=== PATIENT | male | born 1970 | race Hispanic/Latino ===

== ENCOUNTER 2020-04-04 23:20 | Emergency (ER) | payer BC ==
[2020-04-04] MEDS ORDERED: HYDROcodone/Acetaminophen 10/325 mg Tablet ONE (23:34)
[2020-04-04] MEDS ORDERED: AMOXicillin 250 MG CAP ONE (23:34)
== END 2020-04-04 23:33 | disposition home or self-care (01) ==
LOC: BURERS 23:20
DX: K02.9 Dental caries, unspecified (principal); E78.5 Hyperlipidemia, unspecified; Z79.899 Other long term (current) drug therapy; Z79.82 Long term (current) use of aspirin
CPT/HCPCS: 99282

== ENCOUNTER 2020-11-26 18:13 | Emergency (ER) | payer SELFPAY ==
[2020-11-27 18:24] LABS: SARS-CoV-2 MS2 Positive; SARS-CoV-2 N Gene Positive; SARS-CoV-2 S Gene Positive; SARS-CoV-2 by NAA DETECTED (NotDetected); SARS-CoV-2 orf1ab Positive
== END 2020-11-26 18:47 | disposition home or self-care (01) ==
LOC: BURERS 18:13
DX: U07.1 COVID-19 (principal); J06.9 Acute upper respiratory infection, unspecified; E11.9 Type 2 diabetes mellitus without complications; E78.00 Pure hypercholesterolemia, unspecified; Z79.82 Long term (current) use of aspirin
CPT/HCPCS: 87635; 87804; 99283; U0003

== ENCOUNTER 2025-09-17 07:13 | Emergency (ER) | payer BC ==
[2025-09-17] MEDS ORDERED: HYDROcodone/Acetaminophen 5/325 mg Tablet ONE (08:08)
[2025-09-17] MEDS ORDERED: predniSONE 20 MG TAB ONE (08:08)
[2025-09-17] MEDS ORDERED: Ketorolac Tromethamine 30 MG (1 mL) VIAL ONE (09:40)
== END 2025-09-17 11:38 | disposition home or self-care (01) ==
LOC: BURERS 07:13
DX: M54.41 Lumbago with sciatica, right side (principal); E11.9 Type 2 diabetes mellitus without complications; E78.00 Pure hypercholesterolemia, unspecified; Z79.899 Other long term (current) drug therapy
CPT/HCPCS: 96372; 99283; J1885; J2270; J7512; Q0162